=== PATIENT | male | born 1955 | race Caucasian/White ===

== ENCOUNTER 2018-06-19 20:24 | Emergency (ER) | payer OTHER ==
[2018-06-19] MEDS ORDERED: LORazepam 2 MG/ML INJ IV STA (21:32)
--- NOTE | 2018-06-19 21:50 | XR ---
EXAMINATION TYPE: XR chest 1V portable DATE OF EXAM: 06/19/2018 COMPARISON: NONE HISTORY: Dyspnea TECHNIQUE: Single frontal view of the chest is obtained. FINDINGS: Heart and mediastinum are normal. Lungs are clear. Diaphragm is normal. Bony thorax appear s normal. There are chest leads. IMPRESSION: Normal chest
[2018-06-19] MEDS ORDERED: ONDANSETRON 4 MG/2 ML VIAL IVP STA (22:03)
--- NOTE | 2018-06-19 22:03 | ED ---
General Adult HPI - General Chief complaint: ENT Stated complaint: Food stuck in throat Time Seen by Provider: 06/19/18 21:14 Source: patient Mode of arrival: wheelchair Limitations: no limitations - History of Present Illness Initial comments: This patient is 62-year-old man presenting to be evaluated for difficulty with his breathing. The patient states that he had taken "a supplement", which she declined to discuss further with me about 3 hours ago, and then shortly after started feeling like his breathing was different. Patient denies any pain. He denies history of similar reactions. Onset/Timin -: hour(s) Consistency: constant Improves with: none Worsens with: none Associated Symptoms: shortness of breath Treatments Prior to Arrival: none - Related Data Home Medications Medication Instructions Recorded Confirmed No Known Home Medications 06/19/18 06/19/18 Allergies Allergy/AdvReac Type Severity Reaction Status Date / Time Penicillins Allergy Anaphylaxis Verified 06/19/18 20:48 Review of Systems ROS Statement: Those systems with pertinent positive or pertinent negative responses have been documented in the HPI. ROS Other: All systems not noted in ROS Statement are negative. Constitutional: Denies: fever, chills Respiratory: Reports: dyspnea. Denies: cough, wheezes, stridor Cardiovascular: Denies: chest pain, palpitations, dyspnea on exertion, orthopnea , edema, syncope Gastrointestinal: Denies: abdominal pain, vomiting, diarrhea Genitourinary: Denies: dysuria, hematuria Musculoskeletal: Denies: back pain Skin: Denies: rash Neurological: Denies: headache Past Medical History Past Medical History: No Reported History History of Any Multi-Drug Resistant Organisms: None Reported Past Surgical History: Hernia Repair Past Psychological History: No Psychological Hx Reported Smoking Status: Never smoker Past Alcohol Use History: None Reported Past Drug Use History: None Reported General Exam Limitations: no limitations General appearance: alert, in no apparent distress, anxious Head exam: Present: atraumatic, normocephalic Eye exam: Present: normal appearance. Absent: scleral icterus, conjunctival injection ENT exam: Present: normal oropharynx Neck exam: Present: normal inspection Respiratory exam: Present: normal lung sounds bilaterally. Absent: respiratory distress, wheezes, rales, rhonchi, stridor, accessory muscle use, decreased breath sounds, prolonged expiratory Cardiovascular Exam: Present: regular rate, normal rhythm, normal heart sounds. Absent: systolic murmur, diastolic murmur, rubs, gallop GI/Abdominal exam: Present: soft. Absent: distended, tenderness, guarding, rebound, mass Extremities exam: Present: normal inspection, normal capillary refill. Absent: pedal edema, calf tenderness Back exam: Present: normal inspection Neurological exam: Present: alert Psychiatric exam: Present: anxious Skin exam: Present: warm, dry, intact, normal color. Absent: rash Course Vital Signs 06/19/18 06/19/18 06/19/18 20:26 20:39 22:07 Temperature 98.1 F Pulse Rate 69 70 77 Respiratory 24 18 26 H Rate Blood Pressure 175/92 162/87 158/79 O2 Sat by Pulse 100 99 Oximetry EKG Findings - EKG Results: EKG: interpreted by BRANDON, sinus rhythm (Rate 68 bpm), normal axis, normal QRS - Blocks, [place], Hypertrophy, ST Abn: Repolarization changes or abnormalities: nonspecific abnormality, ST segment, and/or T wave, Q-T interval prolongation Medical Decision Making - Medical Decision Making Patient's 62-year-old man presenting with sensation of dyspnea and that possibly he had a capsule stuck in his throat. The patient did have an episode of vomiting, however no capsule was found. The patient does feel better in the emergency department and requests to go home. His studies are unremarkable area we discussed appropriate further care and follow-up as well as return parameters. - Lab Data Result diagrams: 06/19/18 20:44 06/19/18 20:44 Lab Results 06/19/18 06/19/18 06/19/18 Range/Units 20:44 20:44 20:44 WBC 7.5 (3.8-10.6) k/uL RBC 5.05 (4.30-5.90) m/uL Hgb 14.9 (13.0-17.5) gm/dL Hct 44.4 (39.0-53.0) % MCV 87.9 (80.0-100.0) fL MCH 29.4 (25.0-35.0) pg MCHC 33.5 (31.0-37.0) g/dL RDW 13.9 (11.5-15.5) % Plt Count 201 (150-450) k/uL Neutrophils % 74 % Lymphocytes % 15 % Monocytes % 5 % Eosinophils % 4 % Basophils % 1 % Neutrophils # 5.5 (1.3-7.7) k/uL Lymphocytes # 1.1 (1.0-4.8) k/uL Monocytes # 0.4 (0-1.0) k/uL Eosinophils # 0.3 (0-0.7) k/uL Basophils # 0.1 (0-0.2) k/uL PT (9.0-12.0) sec INR (<1.2) APTT (22.0-30.0) sec D-Dimer (<0.60) mg/L FEU Sodium 139 (137-145) mmol/L Potassium 4.6 (3.5-5.1) mmol/L Chloride 103 (98-107) mmol/L Carbon Dioxide 24 (22-30) mmol/L Anion Gap 12 mmol/L BUN 22 H (9-20) mg/dL Creatinine 1.34 H (0.66-1.25) mg/dL Est GFR (CKD-EPI)AfAm 65 (>60 ml/min/1.73 sqM) Est GFR (CKD-EPI)NonAf 56 (>60 ml/min/1.73 sqM) Glucose 115 H (74-99) mg/dL Calcium 9.9 (8.4-10.2) mg/dL Total Bilirubin 0.7 (0.2-1.3) mg/dL AST 28 (17-59) U/L ALT 41 (21-72) U/L Alkaline Phosphatase 64 (38-126) U/L Total Creatine Kinase 251 H (55-170) U/L CK-MB (CK-2) 4.4 H (0.0-2.4) ng/mL CK-MB (CK-2) Rel Index 1.8 Troponin I <0.012 (0.000-0.034) ng/mL NT-Pro-B Natriuret Pep pg/mL Total Protein 7.5 (6.3-8.2) g/dL Albumin 4.6 (3.5-5.0) g/dL 06/19/18 06/19/18 Range/Units 20:44 20:44 WBC (3.8-10.6) k/uL RBC (4.30-5.90) m/uL Hgb (13.0-17.5) gm/dL Hct (39.0-53.0) % MCV (80.0-100.0) fL MCH (25.0-35.0) pg MCHC (31.0-37.0) g/dL RDW (11.5-15.5) % Plt Count (150-450) k/uL Neutrophils % % Lymphocytes % % Monocytes % % Eosinophils % % Basophils % % Neutrophils # (1.3-7.7) k/uL Lymphocytes # (1.0-4.8) k/uL Monocytes # (0-1.0) k/uL Eosinophils # (0-0.7) k/uL Basophils # (0-0.2) k/uL PT 10.2 (9.0-12.0) sec INR 0.9 (<1.2) APTT 24.3 (22.0-30.0) sec D-Dimer 0.50 (<0.60) mg/L FEU Sodium (137-145) mmol/L Potassium (3.5-5.1) mmol/L Chloride (98-107) mmol/L Carbon Dioxide (22-30) mmol/L Anion Gap mmol/L BUN (9-20) mg/dL Creatinine (0.66-1.25) mg/dL Est GFR (CKD-EPI)AfAm (>60 ml/min/1.73 sqM) Est GFR (CKD-EPI)NonAf (>60 ml/min/1.73 sqM) Glucose (74-99) mg/dL Calcium (8.4-10.2) mg/dL Total Bilirubin (0.2-1.3) mg/dL AST (17-59) U/L ALT (21-72) U/L Alkaline Phosphatase (38-126) U/L Total Creatine Kinase (55-170) U/L CK-MB (CK-2) (0.0-2.4) ng/mL CK-MB (CK-2) Rel Index Troponin I (0.000-0.034) ng/mL NT-Pro-B Natriuret Pep 61 pg/mL Total Protein (6.3-8.2) g/dL Albumin (3.5-5.0) g/dL Disposition Clinical Impression: Dyspnea Disposition: HOME SELF-CARE Condition: Good Instructions (If sedation given, give patient instructions): Dyspnea (ED) Is patient prescribed a controlled substance at d/c from ED?: No Referrals: None,Stated [Primary Care Provider] - 1-2 days
[2018-06-19 22:08] LABS: Basophils # (A) 0.1 k/uL (0-0.2); Basophils % (A) 1 %; Eosinophils # (A) 0.3 k/uL (0-0.7); Eosinophils % (A) 4 %; HCT 44.4 % (39.0-53.0); HGB 14.9 gm/dL (13.0-17.5); Lymphocytes # (A) 1.1 k/uL (1.0-4.8); Lymphocytes % (A) 15 %; MCH 29.4 pg (25.0-35.0); MCHC 33.5 g/dL (31.0-37.0); MCV 87.9 fL (80.0-100.0); Mean Platelet Volume 9.1; Monocytes # (A) 0.4 k/uL (0-1.0); Monocytes % (A) 5 %; Neutrophils # (A) 5.5 k/uL (1.3-7.7); Neutrophils % (A) 74 %; Platelet Count 201 k/uL (150-450); RBC 5.05 m/uL (4.30-5.90); RDW 13.9 % (11.5-15.5); WBC 7.5 k/uL (3.8-10.6)
[2018-06-19 22:19] LABS: D-Dimer 0.5 mg/L FEU (<0.60); INR 0.9 (<1.2); Prothrombin Time 10.2 sec (9.0-12.0)
[2018-06-19 22:20] LABS: Partial Thromboplastin Time 24.3 sec (22.0-30.0)
[2018-06-19 22:25] LABS: Albumin 4.6 g/dL (3.5-5.0); Calcium 9.9 mg/dL (8.4-10.2); Potassium 4.6 mmol/L (3.5-5.1); Total Bilirubin 0.7 mg/dL (0.2-1.3); Total Protein 7.5 g/dL (6.3-8.2)
[2018-06-19 22:30] LABS: Creatine Kinase 251 U/L (55-170)
[2018-06-19 22:43] LABS: Creatine Kinase MB 4.4 ng/mL (0.0-2.4); Troponin I <0.012 ng/mL (0.000-0.034)
[2018-06-19 23:37] VITALS: BP 147/80; PULSE 78; RESP 16; TEMP 99
== END 2018-06-19 23:41 | disposition home or self-care (01) ==
LOC: EC 20:24
DX: R06.02 Shortness of breath (principal); R11.10 Vomiting, unspecified; Z88.0 Allergy status to penicillin
CPT/HCPCS: 36415; 93005; 85379; 83880; 80053; 82550; 82553; 84484; 85025; 85610; 85730; 71045; 99284; 96374; 96375; J2060; J2405

== ENCOUNTER → 2018-09-15 | Outpatient (CLI) | payer MEDICARE ==
--- NOTE | 2018-09-16 18:33 | CT ---
EXAMINATION TYPE: CT brain wo/w con DATE OF EXAM: 09/15/2018 COMPARISON: None HISTORY: 63-year-old male ataxia, amnesia, memory loss, confusion. No injury or known conditions per pt. TECHNIQUE: Examination was done in axial plane without and with intravenous contrast. 100 mL Isovue- 300 IV contrast is utilized. Coronal and sagittal reconstructions performed. CT DLP: 2163.2 mGycm Automated exposure control for dose reduction was used. FINDINGS: There is an irregular rim-enhancing mass lesion measuring 4.6 cm craniocaudal by 4.2 cm wide by 4.8 c m AP. This is centered within the left temporal lobe extending up into the posterior aspect of the le ft subinsular region. Surrounding vasogenic edema and resulting 5 mm of rightward midline shift. There is suggestion of min imal left-sided uncal herniation Slight asymmetric mass effect onto the left lateral ventricle and gyral crowding on this side. No evidence for acute intracranial hemorrhage or hydrocephalus or extra-axial fluid collection. 2.6 cm mucosal retention cyst left maxillary sinus and smaller measuring 1.0 cm in the right maxillar y sinus. Slight undulating nasal septum. Orbits and globes appear intact. Mastoid air cells well pneu matized. IMPRESSION: Irregular rim-enhancing, likely centrally necrotic mass measuring up to 4.8 cm centered in the left t emporal lobe extending up into the posterior aspect of the left subinsular region. Surrounding vasoge bhumi edema with resultant 5 mm of rightward midline shift and minimal left-sided uncal herniation. Talib plasm is suggested. A [place] level critical message alert has been initiated for Cayden Yarbrough MD via the [employer] Critical Results System on 09/16/2018 6:30 PM. This message alert has been sent to Cayden Yarbrough MD via the preferences provided by the clinician for the receipt of Radiology Critical Findings. Mess age ID [id number].
== END | disposition home or self-care (01) ==
LOC: RADCTMAIN 15:13
PROVIDERS: ATTEND Internal Medicine
DX: G93.5 Compression of brain (principal); R27.0 Ataxia, unspecified; R22.2 Localized swelling, mass and lump, trunk; R41.3 Other amnesia; R47.01 Aphasia
CPT/HCPCS: 82565; 84520; 70470; 36415; Q9967

== ENCOUNTER 2018-09-17 08:02 | Emergency (ER) | payer MEDICARE ==
--- NOTE | 2018-09-17 08:26 | ED ---
General Adult HPI - General Chief complaint: Neuro Symptoms/Deficit Stated complaint: Confusion Time Seen by Provider: 09/17/18 08:10 Source: patient, RN notes reviewed Mode of arrival: ambulatory Limitations: no limitations - History of Present Illness Initial comments: Patient is a pleasant 63-year-old male presenting to the emergency Department with complaints of confusion. Symptoms have progressed with the past several months. Patient has having problems remembering things. Patient has also been more emotional than normal. Patient did see his primary care physician and had computed tomography scan ordered. Computed tomography scan showed abnormal mass and patient was advised come the emergency Department. No headaches. No weakness. No difficulty with walking. - Related Data Home Medications Medication Instructions Recorded Confirmed No Known Home Medications 06/19/18 06/19/18 Allergies Allergy/AdvReac Type Severity Reaction Status Date / Time Penicillins Allergy Anaphylaxis Verified 09/17/18 08:07 Review of Systems ROS Statement: Those systems with pertinent positive or pertinent negative responses have been documented in the HPI. ROS Other: All systems not noted in ROS Statement are negative. Constitutional: Denies: fever Eyes: Denies: eye pain ENT: Denies: ear pain Respiratory: Denies: cough Cardiovascular: Denies: chest pain Endocrine: Denies: fatigue Gastrointestinal: Denies: abdominal pain Genitourinary: Denies: dysuria Musculoskeletal: Denies: back pain Skin: Denies: rash Neurological: Reports: confusion. Denies: headache, weakness, numbness, paresthesias, abnormal gait, vertigo Past Medical History Past Medical History: No Reported History History of Any Multi-Drug Resistant Organisms: None Reported Past Surgical History: Hernia Repair Past Psychological History: No Psychological Hx Reported Smoking Status: Never smoker Past Alcohol Use History: None Reported Past Drug Use History: None Reported General Exam Limitations: no limitations General appearance: alert, in no apparent distress Head exam: Present: atraumatic, normocephalic Eye exam: Present: normal appearance, PERRL, EOMI. Absent: nystagmus ENT exam: Present: normal oropharynx Neck exam: Present: normal inspection Respiratory exam: Present: normal lung sounds bilaterally Cardiovascular Exam: Present: regular rate, normal rhythm GI/Abdominal exam: Present: soft. Absent: tenderness Extremities exam: Present: normal inspection. Absent: pedal edema, calf tenderness Neurological exam: Present: alert, oriented X3, CN II-XII intact. Absent: motor sensory deficit Expanded Neurological exam: Present: protecting the airway Patient oriented to: Present: person, place, time Speech: Present: fluid speech Cranial nerves: EOM's Intact: Normal, Facial Sensation: Normal Cerebellar function: Finger to Nose: Normal Sensory exam: Upper Extremity Light Touch: Normal, Lower Extremity Light Touch: Normal Motor strength exam: RUE: 5, LUE: 5, RLE: 5, LLE: 5 Eye Response: (4) open spontaneously Motor Response: (6) obeys commands Verbal Response: (5) oriented Psychiatric exam: Present: normal affect, normal mood Skin exam: Present: normal color Course Vital Signs 09/17/18 08:04 Temperature 97.6 F Pulse Rate 72 Respiratory 18 Rate Blood Pressure 152/89 O2 Sat by Pulse 100 Oximetry Medical Decision Making - Medical Decision Making Patient was notified of results and need for further evaluation and transfer. Case was discussed with Dr. Smart at [facility] who will accept transfer. - Radiology Data Radiology results: report reviewed (Reviewed CT report from 09/15 showing left- sided temporal mass 4.8 cm with some edema and shift.) Disposition Clinical Impression: Brain mass Disposition: OTHER INSTITUTION NOT DEFINED Is patient prescribed a controlled substance at d/c from ED?: No Referrals: Cayden Yarbrough MD [Primary Care Provider] - 1-2 days Time of Disposition: 08:32 - Out of Hospital Transfer - Req. Specs Out of Hospital Transfer - Requested Specifics: Other Emergency Center
[2018-09-17 08:36] VITALS: RESP 16
[2018-09-17 08:48] LABS: Basophils # (A) 0.1 k/uL (0-0.2); Basophils % (A) 1 %; Eosinophils # (A) 0.3 k/uL (0-0.7); Eosinophils % (A) 3 %; HCT 46.7 % (39.0-53.0); HGB 15.7 gm/dL (13.0-17.5); Lymphocytes # (A) 1.5 k/uL (1.0-4.8); Lymphocytes % (A) 14 %; MCH 29.6 pg (25.0-35.0); MCHC 33.6 g/dL (31.0-37.0); Mean Platelet Volume 7.7; Monocytes # (A) 0.4 k/uL (0-1.0); Monocytes % (A) 4 %; Neutrophils # (A) 8.3 k/uL (1.3-7.7); Neutrophils % (A) 77 %; Platelet Count 238 k/uL (150-450); RBC 5.31 m/uL (4.30-5.90); RDW 13.8 % (11.5-15.5); WBC 10.7 k/uL (3.8-10.6)
[2018-09-17 08:51] LABS: INR 0.9 (<1.2); Partial Thromboplastin Time 23.3 sec (22.0-30.0); Prothrombin Time 10.1 sec (9.0-12.0)
[2018-09-17] MEDS ORDERED: DEXAMETHASONE SOD PHOSPHATE 10 MG/ML 1 ML VIAL IV STA (08:56)
--- NOTE | 2018-09-17 09:00 | XR ---
EXAMINATION TYPE: XR chest 2V DATE OF EXAM: 09/17/2018 COMPARISON: 06/19/2018 HISTORY: 63-year-old male confusion, altered mental status TECHNIQUE: PA and lateral views FINDINGS: The cardiomediastinal silhouette, aorta, and pulmonary vasculature are within normal limits. Lungs an d pleural spaces are clear. IMPRESSION: No acute cardiopulmonary process.
[2018-09-17 09:14] LABS: Albumin 4.9 g/dL (3.5-5.0); Calcium 9.9 mg/dL (8.4-10.2); Potassium 4.6 mmol/L (3.5-5.1); Total Bilirubin 0.8 mg/dL (0.2-1.3); Total Protein 7.9 g/dL (6.3-8.2)
[2018-09-17 10:06] VITALS: BP 168/88; PULSE 67; TEMP 98.1
== END 2018-09-17 10:10 | disposition other institution (70) ==
LOC: EC 08:02
DX: G93.9 Disorder of brain, unspecified (principal); Z88.0 Allergy status to penicillin
CPT/HCPCS: 36415; 71046; 80053; 85025; 85610; 85730; 93005; 96374; 99285

== ENCOUNTER → 2019-01-14 | Outpatient (CLI) | payer MEDICARE ==
--- NOTE | 2019-01-14 14:42 | MR ---
EXAMINATION TYPE: MR brain wo/w con DATE OF EXAM: 01/14/2019 COMPARISON: CT brain September 15, 2018. 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 TECHNIQUE: Multiplanar, multisequence images of the brain and brainstem is performed without and with IV contras t, utilizing 10 mL intravenous Gadavist . FINDINGS: Diffusion weighted images demonstrate no evidence of a recent infarct or other diffusion ab normality. There is background mild ventricular and sulcal prominence redemonstrated. There is marke d improvement in size in local mass effect of left temporal lesion with oval 2.1 x 2.0 cm rim-enhanci ng focus posterior left temporal lobe series 6 on image 26 remaining present that shows some surround ing vasogenic edema most prominent involving inferior aspect left temporal lobe. This lesion measured 4.8 cm long axis prior study axial image 19. Significant improvement is identified from prior CT in the lesion size and surrounding edema. Midline structures demonstrate normal morphology. The craniocervical junction appears within normal limits. Post contrast images demonstrate no new areas of abnormal enhancement. The dural venous sinu ses appear patent. Dominant left vertebral artery incidentally noted. There is mucous retention cyst or polyps redemonstrated in the left maxillary sinus largest posterior aspect axial image 3. Some pat david fluid signal left mastoid air cells is now present presumed retained secretions, correlate clinic ally. IMPRESSION: Positive treatment response through the left temporal mass or neoplasm
== END | disposition home or self-care (01) ==
LOC: RADMRIMAIN 13:10
PROVIDERS: ATTEND Radiology Radiation Oncology
DX: C71.2 Malignant neoplasm of temporal lobe (principal); Z98.890 Other specified postprocedural states
CPT/HCPCS: 70553; A9585

== ENCOUNTER → 2019-04-12 | Outpatient (CLI) | payer MEDICARE | LOC: RADMRIMAIN 16:44 | PROVIDERS: ATTEND Radiology Radiation Oncology | DX: Z53.9 Procedure and treatment not carried out, unspecified reason (principal) ==

== ENCOUNTER → 2019-04-28 | Outpatient (CLI) | payer MEDICARE ==
--- NOTE | 2019-04-28 13:20 | MR ---
EXAMINATION TYPE: MR brain wo/w con DATE OF EXAM: 04/28/2019 COMPARISON: 01/14/2019 HISTORY: Mets, lung CA treated with post surgical excision and radiation. TECHNIQUE: Multiplanar, multisequence images of the brain and brainstem is performed without and with IV contras t, utilizing 11 mL intravenous Gadavist . FINDINGS: Diffusion weighted images demonstrate no evidence of a recent infarct or other diffusion ab normality. There is no extra-axial fluid collection. The ventricular system and cisternal spaces ar e again diffusely prominent with more volume loss on the left and right. The left temporal lesion measures slightly smaller in comparison to the prior of 01/14/2019 now measur ing 1.8 x 2.1 cm and previously measuring 2.0 x 2.1 cm when measured in a similar location. There is a similar degree of vasogenic edema. The mass is centrally cystic with only peripheral enhancement. A second cystic component is now more readily visualized than on the prior seen anterior and medial to the lesion. This measures 1.0 x 0.6 cm. Some linear enhancement seen at the posterior and cranial as pect of the index primary lesion such as on postcontrast series 601 image 28. There is slight asymmet jana dural enhancement surrounding the left temporal lobe, likely posttreatment change. No additional areas of abnormal enhancement are seen. Craniotomy changes seen of the left parietal and temporal regions with dural flap demonstrating thin peripheral enhancement. There are a few scattered foci of T2/FLAIR hyperintensity in the subcortical and periventricular whit e matter likely on the basis of chronic microangiopathy. Midline structures demonstrate normal morpho logy. The craniocervical junction appears within normal limits. Post contrast images demonstrate no abnormal enhancement. The dural venous sinuses appear patent. Are extensive polypoid mucosal thicken ing of the left maxillary sinus that is complex and mild polypoid mucosal thickening in the right max illary sinus with mild mucosal thickening of the ethmoid sinuses and scant mucosal thickening of the frontal sinuses. Sphenoid sinuses and mastoid air cells are well aerated. IMPRESSION: 1. Similar size of the postsurgical cavitary lesion of the left temporal lobe in comparison to the pr ior of 01/14/2019. A second adjacent smaller cavitary area is slightly more conspicuous than the prior . No new nodularity of the peripheral thin rim enhancement and dural enhancement. Findings are all li caity represent posttreatment change. 2. No new abnormal enhancement to suggest additional intracranial metastasis. 3. Complex polypoid paranasal sinus disease.
== END | disposition home or self-care (01) ==
LOC: RADMRIMAIN 11:30
PROVIDERS: ATTEND Radiology Radiation Oncology
DX: C71.2 Malignant neoplasm of temporal lobe (principal); J32.9 Chronic sinusitis, unspecified; Z98.890 Other specified postprocedural states
CPT/HCPCS: 70553; A9585

== ENCOUNTER → 2019-07-06 | Outpatient (CLI) | payer MEDICARE | END | disposition home or self-care (01) | LOC: RADMRIMAIN 10:52 | PROVIDERS: ATTEND Radiology Radiation Oncology | DX: Z53.9 Procedure and treatment not carried out, unspecified reason (principal) ==

== ENCOUNTER → 2019-07-30 | Outpatient (CLI) | payer MEDICARE ==
--- NOTE | 2019-07-30 20:53 | MR ---
EXAMINATION TYPE: MR brain wo/w con DATE OF EXAM: 07/30/2019 COMPARISON: 04/28/2019 HISTORY: Malignant neoplasm of temporal lobe, metastatic lung ca. Brain surgery 2019 CONTRAST: Performed utilizing 10 mL intravenous Gadavist gadolinium contrast. TECHNIQUE: Multiplanar, multiecho imaging on a 3.0 Magalie magnet is performed through the brain. Stud y is performed within 24 hours of arrival to the hospital. The craniovertebral junction is normal. The pituitary is normal. Diffusion-weighted imaging is performed. No abnormal hyperintensity is present to suggest an acute i ntracranial infarct or acute ischemic change. There is periventricular mild white matter change, likely chronic white matter ischemic change. Left temporal post surgical changes are present. White matter changes adjacent to the surgery site ar e evident. Additionally, better visualized on postcontrast imaging there is an area of increased enhancement in the anterior left temporal lobe measuring 1.8 x 1.0r by 1.0 cm. Residual tumor is suspected this has increased in size from the comparison of 04/28/2019. The fluid cavity in the middle cranial fossa left temporal lobe region currently measures 1.1 x 1.8 c m which is diminished from the 2.1 x 1.8 cm. Ventricles and sulci are prominent for the patient age. Mucosal thickening is present within several paranasal sinuses including bilateral maxillary left et hmoid air cell and bilateral frontal sinuses.. IMPRESSIONS: 1. Increasing area and volume of enhancement along the inferior anterior postsurgical site of the lef t temporal lobe suspicious for recurrence. 2. The cavitary portion of the lesion in the anterior left temporal lobe is diminished in size over t he interval.
== END | disposition home or self-care (01) ==
LOC: RADMRIMAIN 14:43
PROVIDERS: ATTEND Radiology Radiation Oncology
DX: C71.2 Malignant neoplasm of temporal lobe (principal); Z92.3 Personal history of irradiation; Z98.890 Other specified postprocedural states
CPT/HCPCS: 70553; A9585

== ENCOUNTER → 2019-09-22 | Outpatient (CLI) | payer MEDICARE ==
--- NOTE | 2019-09-22 15:08 | MR ---
EXAMINATION TYPE: MR brain wo/w con DATE OF EXAM: 09/22/2019 COMPARISON: EXAMINATION TYPE: MR brain wo/w con DATE OF EXAM: 09/22/2019 COMPARISON: 07/30/2019 HISTORY: 64-year-old male F/U tumor resection temporal lobe TECHNIQUE: Multiplanar, multisequence images of the brain and brainstem were acquired before and aft er administration of 10 mL IV Gadavist. Diffusion weighted imaging is performed. FINDINGS: No suspicious restricted diffusion. Left temporal craniotomy flap with underlying resection cavity in the middle cranial fossa. Resection cavity is filled with CSF attenuation measuring 1.7 x 1.1 cm, unchanged from 07/30/2019. Enhancement along the anterior-inferior margin measures up to 2.7 cm wide and 1.2 cm AP and 9 mm cran iocaudal (versus 2.5 cm wide by 1.0 x 0.7 cm, previously). (Axial image 31 and sagittal image 24). Heterogeneous enhancement extending from the posterior resection margin measures 2.3 cm AP by 1.2 cm craniocaudal by 1.3 cm wide. This is in comparison to 2.3 x 0.9 x 1.0 cm. (Axial image 33 and sagitta l image 26). The overall surrounding bright white matter change throughout the left temporal lobe extending up and posterior to the atrium of the left lateral ventricle and to the posterior left subinsular region ar e unchanged. No new enhancing lesions are seen. Mild to moderate ventriculomegaly is unchanged, likely secondary to central cerebral atrophy. Few scattered bright white matter foci in the subcortical and deep white matter regions of both cereb ral hemispheres likely related to changes of chronic small vessel ischemic disease with minimal burni ng. Midline structures demonstrate normal morphology. The craniocervical junction is normal. Large mucosal retention cysts in the left maxillary sinus measuring up to 3.4 cm and the right maxill haley sinus measuring up to 1.2 cm. Scattered moderate mucosal thickening ethmoid air cells. IMPRESSION: 1. Left temporal craniotomy flap with underlying resection cavity.. 2. Overall stable size of the 1.7 x 1.1 cm resection cavity. Lobulated heterogeneous enhancement jc g the anterior and posterior margins show minimal increase by a few millimeters. Post radiation thera py change remains a possibility rather than recurrence along the resection margin. Continued follow-u p recommended. 3. Stable bright white matter change throughout the left temporal lobe extending posteriorly and supe riorly along the atrium of the left lateral ventricle. 4. No new enhancing lesions.
== END | disposition home or self-care (01) ==
LOC: RADMRIMAIN 13:01
PROVIDERS: ATTEND Neurological Surgery
DX: C71.1 Malignant neoplasm of frontal lobe (principal); Z98.890 Other specified postprocedural states; Z48.811 Encounter for surgical aftercare following surgery on the nervous system; R90.82 White matter disease, unspecified
CPT/HCPCS: 70553; A9585

== ENCOUNTER 2019-11-12 13:48 | Inpatient (IN) | payer MEDICARE ==
[2019-11-12] MEDS ORDERED: SODIUM CHLORIDE 0.9% 500 ML 500 ML IV STA (14:23)
--- NOTE | 2019-11-12 14:28 | ED ---
General Adult HPI - General Chief complaint: Neuro Symptoms/Deficit Stated complaint: Poss stroke Time Seen by Provider: 11/12/19 13:50 Source: patient, RN notes reviewed, old records reviewed Mode of arrival: ambulatory Limitations: language barrier, altered mental status - History of Present Illness Initial comments: This is a 64-year-old male who presents emergency Department and is difficult to understand he's having some expressive aphasia. Patient has no one with him and he states there is no family members area. Extensive conversation it was determined that the patient at some sort of facial surgery just anterior to his left ear and he said that was done at [facility] I believe. But it wasn't 100% clear what surgery or what for. Patient also states he had symptoms of droopy face and expressive aphasia for a week and he was at [facility] a week ago and they sent him home but he is back today because he just wants it fixed. Very difficu lt to get any details and 2 get accurate details from the patient. - Related Data Home Medications Medication Instructions Recorded Confirmed No Known Home Medications 06/19/18 09/17/18 Allergies Allergy/AdvReac Type Severity Reaction Status Date / Time Penicillins Allergy Anaphylaxis Verified 11/12/19 13:55 Review of Systems ROS Statement: Those systems with pertinent positive or pertinent negative responses have been documented in the HPI. ROS Other: All systems not noted in ROS Statement are negative. Past Medical History Past Medical History: Hypertension History of Any Multi-Drug Resistant Organisms: None Reported Past Surgical History: Hernia Repair Past Psychological History: No Psychological Hx Reported Smoking Status: Never smoker Past Alcohol Use History: None Reported Past Drug Use History: None Reported General Exam - General Exam Comments Initial Comments: GENERAL: Patient is well-developed and well-nourished. Patient is nontoxic and well- hydrated and is in mild distress. ENT: Neck is soft and supple. No significant lymphadenopathy is noted. Oropharynx is clear. Moist mucous membranes. EYES: The sclera were anicteric and conjunctiva were pink and moist. Extraocular movements were intact and pupils were equal round and reactive to light. Eyelids were unremarkable. PULMONARY: Unlabored respirations. Good breath sounds bilaterally. No audible rales rhonchi or wheezing was noted. CARDIOVASCULAR: There is a regular rate and rhythm without any murmurs gallops or rubs. ABDOMEN: Soft and nontender with normal bowel sounds. SKIN: Skin is clear with no lesions or rashes and otherwise unremarkable. NEUROLOGIC: Patient is alert and oriented difficult to assess orientation because he has such bad expressive aphasia. Patient has complete left-sided facial paralysis including forehead. Patient has expressive aphasia and it is difficult for him to explain what is going on today and why he is here. MUSCULOSKELETAL: Normal extremities with adequate strength and full range of motion. LYMPHATICS: No significant lymphadenopathy is noted PSYCHIATRIC: Normal psychiatric evaluation. Limitations: altered mental status Course Vital Signs 11/12/19 11/12/19 11/12/19 13:50 15:18 17:05 Temperature 98.3 F Pulse Rate 50 L 48 L 46 L Respiratory 18 15 16 Rate Blood Pressure 144/87 159/88 159/89 O2 Sat by Pulse 97 96 96 Oximetry Medical Decision Making - Medical Decision Making EKG shows a sinus bradycardia 53 bpm [place] interval 148 QRS is 82 QT intervals 438 QTC is 410. Patient's EKG shows no ST segment elevation or depression. CT of the brain and CTA a showed no acute abnormality. Patient still is having difficult time expressing why he is here and giving details of his circumstances. I did review the paperwork from [facility] and it did indicate he has a history of glioblastoma and had recent surgery on September 24. We also received a phone call from Adult Protective Services stating that the patient was acting altered recently and on occasionally taking more medicine than was prescribed. I spoke with Dr. Goins he agreed to admit the patient admitted the patient wrote admitting orders. - Lab Data Result diagrams: 11/12/19 14:10 11/12/19 14:10 Lab Results 11/12/19 11/12/19 11/12/19 Range/Units 14:10 14:10 14:10 WBC 16.2 H (3.8-10.6) k/uL RBC 4.57 (4.30-5.90) m/uL Hgb 14.4 (13.0-17.5) gm/dL Hct 41.8 (39.0-53.0) % MCV 91.4 (80.0-100.0) fL MCH 31.5 (25.0-35.0) pg MCHC 34.4 (31.0-37.0) g/dL RDW 13.9 (11.5-15.5) % Plt Count 232 (150-450) k/uL Neutrophils % 90 % Lymphocytes % 5 % Monocytes % 4 % Eosinophils % 0 % Basophils % 0 % Neutrophils # 14.5 H (1.3-7.7) k/uL Lymphocytes # 0.8 L (1.0-4.8) k/uL Monocytes # 0.7 (0-1.0) k/uL Eosinophils # 0.1 (0-0.7) k/uL Basophils # 0.1 (0-0.2) k/uL PT 10.2 (9.0-12.0) sec INR 1.0 (<1.2) APTT 21.2 L (22.0-30.0) sec Sodium 136 L (137-145) mmol/L Potassium 4.6 (3.5-5.1) mmol/L Chloride 105 (98-107) mmol/L Carbon Dioxide 24 (22-30) mmol/L Anion Gap 7 mmol/L BUN 25 H (9-20) mg/dL Creatinine 0.95 (0.66-1.25) mg/dL Est GFR (CKD-EPI)AfAm >90 (>60 ml/min/1.73 sqM) Est GFR (CKD-EPI)NonAf 84 (>60 ml/min/1.73 sqM) Glucose 102 H (74-99) mg/dL Calcium 9.5 (8.4-10.2) mg/dL Total Bilirubin 0.5 (0.2-1.3) mg/dL AST 21 (17-59) U/L ALT 22 (4-49) U/L Alkaline Phosphatase 63 (38-126) U/L Troponin I (0.000-0.034) ng/mL Total Protein 6.6 (6.3-8.2) g/dL Albumin 4.0 (3.5-5.0) g/dL 11/12/19 Range/Units 14:10 WBC (3.8-10.6) k/uL RBC (4.30-5.90) m/uL Hgb (13.0-17.5) gm/dL Hct (39.0-53.0) % MCV (80.0-100.0) fL MCH (25.0-35.0) pg MCHC (31.0-37.0) g/dL RDW (11.5-15.5) % Plt Count (150-450) k/uL Neutrophils % % Lymphocytes % % Monocytes % % Eosinophils % % Basophils % % Neutrophils # (1.3-7.7) k/uL Lymphocytes # (1.0-4.8) k/uL Monocytes # (0-1.0) k/uL Eosinophils # (0-0.7) k/uL Basophils # (0-0.2) k/uL PT (9.0-12.0) sec INR (<1.2) APTT (22.0-30.0) sec Sodium (137-145) mmol/L Potassium (3.5-5.1) mmol/L Chloride (98-107) mmol/L Carbon Dioxide (22-30) mmol/L Anion Gap mmol/L BUN (9-20) mg/dL Creatinine (0.66-1.25) mg/dL Est GFR (CKD-EPI)AfAm (>60 ml/min/1.73 sqM) Est GFR (CKD-EPI)NonAf (>60 ml/min/1.73 sqM) Glucose (74-99) mg/dL Calcium (8.4-10.2) mg/dL Total Bilirubin (0.2-1.3) mg/dL AST (17-59) U/L ALT (4-49) U/L Alkaline Phosphatase (38-126) U/L Troponin I <0.012 (0.000-0.034) ng/mL Total Protein (6.3-8.2) g/dL Albumin (3.5-5.0) g/dL Disposition Clinical Impression: Altered mental status, Family history of glioblastoma Disposition: ADMITTED IP TO THIS [facility] Referrals: Nonstaff,Physician [Primary Care Provider] - 1-2 days Time of Disposition: 17:11
[2019-11-12 14:51] LABS: ALT 22 U/L (4-49); AST 21 U/L (17-59); African American GFR (CKD) >90 (>60 ml/min/1.73 sqM); Alkaline Phosphatase 63 U/L (38-126); Anion Gap 7 mmol/L; Blood Urea Nitrogen 25 mg/dL (9-20); Calcium 9.5 mg/dL (8.4-10.2); Carbon Dioxide 24 mmol/L (22-30); Chloride 105 mmol/L (98-107); Glucose 102 mg/dL (74-99); Non-African American GFR(CKD) 84 (>60 ml/min/1.73 sqM); Potassium 4.6 mmol/L (3.5-5.1); Sodium 136 mmol/L (137-145); Total Bilirubin 0.5 mg/dL (0.2-1.3); Total Protein 6.6 g/dL (6.3-8.2)
[2019-11-12 14:54] LABS: Prothrombin Time 10.2 sec (9.0-12.0)
--- NOTE | 2019-11-12 14:54 | CT ---
EXAMINATION TYPE: CT brain wo con for TPA DATE OF EXAM: 11/12/2019 COMPARISON: 09/15/2018 HISTORY: Confusion, left sided facial droop. CT DLP: 1238.[address] of the brain was performed. The ventricles, basal cisterns and sulci overlying the cerebral convexities demonstrate mild enlargem ent. There is no evidence for intracranial hemorrhage or sulcal effacement. There is decreased attenuation about the periventricular white matter and deep white matter of both c erebral hemispheres, compatible with chronic small vessel ischemia. Differential diagnosis does inclu de demyelination. No mass effects are seen.No midline shift. Left temporal craniotomy changes noted. If symptoms persist consider MRI. IMPRESSION: 1. Age related atrophic and chronic small vessel ischemic change without acute intracranial process s een at this time.
[2019-11-12 14:55] LABS: Basophils # (A) 0.1 k/uL (0-0.2); Basophils % (A) 0 %; Eosinophils # (A) 0.1 k/uL (0-0.7); Eosinophils % (A) 0 %; HCT 41.8 % (39.0-53.0); HGB 14.4 gm/dL (13.0-17.5); Lymphocytes # (A) 0.8 k/uL (1.0-4.8); Lymphocytes % (A) 5 %; MCH 31.5 pg (25.0-35.0); MCHC 34.4 g/dL (31.0-37.0); MCV 91.4 fL (80.0-100.0); Monocytes # (A) 0.7 k/uL (0-1.0); Monocytes % (A) 4 %; Neutrophils # (A) 14.5 k/uL (1.3-7.7); Neutrophils % (A) 90 %; Platelet Count 232 k/uL (150-450); RBC 4.57 m/uL (4.30-5.90); RDW 13.9 % (11.5-15.5); WBC 16.2 k/uL (3.8-10.6)
[2019-11-12 14:56] LABS: Partial Thromboplastin Time 21.2 sec (22.0-30.0)
--- NOTE | 2019-11-12 15:16 | CT ---
EXAMINATION TYPE: CT angio head neck DATE OF EXAM: 11/12/2019 COMPARISON: None HISTORY: Confusion, left sided facial droop. CT DLP: 587.1 mGycm CONTRAST: Performed with IV Contrast, patient injected with 65 mL of Isovue 370. Combination Contrast CTA cervical carotids and [place] of Max CTA cervical carotids with 3-D recons truction Contrast CTA of the cervical carotids was performed 3-D reconstruction imaging obtained at a separate workstation. Right carotid system: Mild plaque is seen of the right common carotid artery. There is mild plaque a lso noted at the carotid bulb and proximal ICA. No significant diameter reduction. ECA is patent. Right vertebral artery appears unremarkable. Left carotid system: Mild plaque is seen of the left common carotid artery. There is mild plaque als o noted at the carotid bulb and proximal ICA. No significant diameter reduction. ECA is patent. Lef t vertebral artery appears unremarkable. IMPRESSION: 1. No significant diameter reduction to account for the patient's symptoms. CTA [place] with 3-D reconstruction Contrast CTA of the [place] was performed 3-D reconstruction imaging obtained at a separate workstation. Vertebrobasilar system as well as intracranial portions of the internal carotid arteries and their ma robert tributaries are patent. I do not see evidence for sizable aneurysm or vascular malformation. Pl ease note MRI provides greater sensitivity and specificity. Visualized brain appears grossly unremar kable. IMPRESSION: 1. No significant abnormality.
--- NOTE | 2019-11-12 15:20 | XR ---
EXAMINATION TYPE: XR chest 2V DATE OF EXAM: 11/12/2019 COMPARISON: 09/17/2018 INDICATION: Altered mental status facial droop TECHNIQUE: Frontal and lateral views of the chest are obtained. FINDINGS: The heart size is normal. The pulmonary vasculature is normal. The lungs are clear. IMPRESSION: 1. No acute pulmonary process.
[2019-11-12] MEDS ORDERED: SODIUM CHLORIDE 0.9% 1,000 ML IV ONE (17:11)
[2019-11-12] MEDS ORDERED: LORazepam 2 MG/ML INJ IV STA (18:37)
[2019-11-12] MEDS ORDERED: ONDANSETRON 4 MG/2 ML VIAL IVP PRN (23:15)
--- NOTE | 2019-11-12 23:47 | P.HPIM ---
History of Present Illness H&P Date: 11/12/19 Chief Complaint: Facial asymmetry Patient is a 64-year-old male with a known history of hypertension, history of GBM and craniotomy 2 years ago and also recent laser resection at [facility] on September 25, 2019 given. With the complaints of expressive aphasia and facial asymmetry. Patient states that he is currently at home and was discharged from [facility] 10/21/2019 patient was given dexamethasone tapering course at that time. Patient states that he has been having patient is medically and also states that his left side of the face is more flattened than after surgery recently. Patient believes that his left side of the face is more improved it was couple weeks ago. Patient is also having expiratory phase over the past 1 week and was admitted 3-week ago and was sent home. Patient is back to the hospital and he wants it to be fixed. Patient is somewhat disoriented and unable to provide reliable history at this time.Patient denied any complaints of chest pain or shortness of breath. No cough or sputum production. No fever no chills. No nausea vomiting or abdominal pain or diarrhea We have received a phone call from Adult Protective Services stating that the patient was acting altered recently and on occasionally taking more medication than prescribed. Patient had EKG in the ER showed sinus bradycardia with QTC 410. No ST-T wave changes. CT head was done showed age-related atrophic and chronic small vessel ischemic changes without acute intracranial process. CT angiography head and neck showed no significant diameter reduction to account for the patient's symptoms. No significant abnormalities. Chest x-ray showed no acute process. UA is pending. Blood pressure was 159/88 and pulse is 48 on admission saturat ing well on room air. Laboratory data showed WBC 16.2, hemoglobin 14.4 Sodium 136, BUN 25 and creatinine 0.95 Past Medical History: Hypertension Additional Past Medical History / Comment(s): brain mass History of Any Multi-Drug Resistant Organisms: None Reported Past Surgical History: Hernia Repair Additional Past Surgical History / Comment(s): brain sugery x2-last one 2 weeks ago. Past Anesthesia/Blood Transfusion Reactions: No Reported Reaction Past Psychological History: No Psychological Hx Reported Smoking Status: Former smoker Past Alcohol Use History: None Reported Additional Past Alcohol Use History / Comment(s): social drinker. Past Drug Use History: None Reported This is a 64-year-old male who presents emergency Department and is difficult to understand he's having some expressive aphasia. Patient has no one with him and he states there is no family members area. Extensive conversation it was determined that the patient at some sort of facial surgery just anterior to his left ear and he said that was done at [facility] I believe. But it wasn't 100% clear what surgery or what for. Patient also states he had symptoms of droopy face and expressive aphasia for a week and he was at [facility] a week ago and they sent him home but he is back today because he just wants it fixed. Very difficult to get any details and 2 get accurate details from the patient. Review of Systems Complete review of systems could not be obtained at this time except as per HPI.. Past Medical History Past Medical History: Hypertension Additional Past Medical History / Comment(s): brain mass History of Any Multi-Drug Resistant Organisms: None Reported Past Surgical History: Hernia Repair Additional Past Surgical History / Comment(s): brain sugery x2-last one 2 weeks ago. Past Anesthesia/Blood Transfusion Reactions: No Reported Reaction Past Psychological History: No Psychological Hx Reported Smoking Status: Former smoker Past Alcohol Use History: None Reported Additional Past Alcohol Use History / Comment(s): social drinker. Past Drug Use History: None Reported - Past Family History Sister(s) Family Medical History: Myocardial Infarction (OR) Brother(s) Family Medical History: Myocardial Infarction (OR) Medications and Allergies Home Medications Medication Instructions Recorded Confirmed Type Dexamethasone See Taper PO DIRECTED 11/12/19 11/12/19 History Ondansetron HCl [Zofran] 8 mg PO Q8H PRN 11/12/19 11/12/19 History amLODIPine [Norvasc] 5 mg PO DAILY 11/12/19 11/12/19 History Allergies Allergy/AdvReac Type Severity Reaction Status Date / Time Penicillins Allergy Anaphylaxis Verified 11/12/19 20:31 Physical Exam Vitals: Vital Signs Temp Pulse Pulse Resp BP BP Pulse Ox 11/12/19 21:29 97.4 F L 60 16 129/69 98 11/12/19 19:06 57 L 18 144/88 96 11/12/19 18:39 48 L 16 144/89 96 11/12/19 17:05 46 L 16 159/89 96 11/12/19 15:18 48 L 15 159/88 96 11/12/19 13:50 98.3 F 50 L 18 144/87 97 Intake and Output 11/12/19 11/12/19 11/13/19 14:59 22:59 06:59 Other: Weight 99.79 kg 99.79 kg PHYSICAL EXAMINATION: Patient is lying in the bed comfortably, no acute distress, awake alert and oriented.. HEENT: Normocephalic. Neck is supple. Pupils reactive. Nostrils clear. Oral cavity is moist. Ears reveal no drainage. Neck reveals no JVD, carotid bruits, or thyromegaly. CHEST EXAMINATION: Trachea is central. Symmetrical expansion. Lung garcia clear to auscultation and percussion. CARDIAC: Normal S1, S2 with no gallops. No murmurs ABDOMEN: Soft. Bowel sounds normal. No organomegaly. No abdominal bruits. Extremities: reveal no edema. No clubbing or cyanosis Neurologically awake, alert, oriented x2-3 .Left-sided facial droop. Muscle strength 5 out of 5 on all 4 extremities. Skin: No rash or skin lesions. Psychiatric: Coperative. Nonsuicidal Musculoskeletal: No joint swelling or deformity. Normal range of motion. Results CBC & Chem 7: 11/12/19 14:10 11/12/19 14:10 Labs: Abnormal Lab Results - Last 24 Hours (Table) 11/12/19 11/12/19 11/12/19 Range/Units 14:10 14:10 14:10 WBC 16.2 H (3.8-10.6) k/uL Neutrophils # 14.5 H (1.3-7.7) k/uL Lymphocytes # 0.8 L (1.0-4.8) k/uL APTT 21.2 L (22.0-30.0) sec Sodium 136 L (137-145) mmol/L BUN 25 H (9-20) mg/dL Glucose 102 H (74-99) mg/dL Thrombosis Risk Factor Assmnt - DVT/VTE Prophylaxis DVT/VTE Prophylaxis: Pharmacologic Prophylaxis ordered - Choose All That Apply Any of the Below Risk Factors Present?: Yes Each Factor Represents 1 point: Obesity (BMI >25) Other Risk Factors: Yes Each Risk Factor Represents 2 Points: Age 61-74 years Thrombosis Risk Factor Assessment Total Risk Factor Score: 3 Thrombosis Risk Factor Assessment Level: Moderate Risk Assessment and Plan Assessment: Left-sided facial asymmetry and expressive was 2 weeks ago as per patient. Ruled out acute CVA. CT head and CTA negative. Possible acute delirium with recent steroid use Mild hypovolemic hyponatremia Leukocytosis. Rule out infection. Hypertension History of glioblastoma multiforme status post laser surgery at [facility] on September 25, 2019 Previous history of smoking DVT prophylaxis with heparin subcu Plan: Patient will be continued on gentle hydration and symptomatic management. CT head and CTA head and neck was done showed no significant changes. Chest x-ray is negative and UA was ordered. Monitor repeat labs tomorrow. Continue to follow closely and further recommendations based on clinical course. Time with Patient: Greater than 30
[2019-11-13 06:00] LABS: Appearance,Urine Clear (Clear); Bilirubin,Urine Negative (Negative); Blood,Urine Negative (Negative); Color,Urine Light Yellow; Glucose,Urine (UA) Negative (Negative); Ketones,Urine Negative (Negative); Leukocyte Esterase,Urine Negative (Negative); Nitrite,Urine Negative (Negative); Protein,Urine Negative (Negative); Specific Gravity,Urine 1.008 (1.001-1.035); Urobilinogen,Urine <2.0 mg/dL (<2.0)
[2019-11-13 07:42] LABS: Basophils # (A) 0.1 k/uL (0-0.2); Basophils % (A) 1 %; Eosinophils # (A) 0.2 k/uL (0-0.7); Eosinophils % (A) 2 %; HCT 42.6 % (39.0-53.0); HGB 14.2 gm/dL (13.0-17.5); Lymphocytes # (A) 1.9 k/uL (1.0-4.8); Lymphocytes % (A) 16 %; MCH 31.2 pg (25.0-35.0); MCHC 33.3 g/dL (31.0-37.0); MCV 93.8 fL (80.0-100.0); Mean Platelet Volume 7.9; Monocytes # (A) 0.6 k/uL (0-1.0); Monocytes % (A) 5 %; Neutrophils # (A) 8.8 k/uL (1.3-7.7); Neutrophils % (A) 75 %; Platelet Count 182 k/uL (150-450); RBC 4.55 m/uL (4.30-5.90); WBC 11.7 k/uL (3.8-10.6)
[2019-11-13 08:00] LABS: Calcium 8.7 mg/dL (8.4-10.2); Potassium 4.2 mmol/L (3.5-5.1)
[2019-11-13] MEDS: amLODIPine 5 MG TAB PO SCH (08:42)
[2019-11-13] MEDS ORDERED: DEXAMETHASONE 4 MG TAB PO SCH (09:00)
[2019-11-14] MEDS: amLODIPine 5 MG TAB PO SCH (14:31)
--- NOTE | 2019-11-14 15:35 | P.CN ---
Psychiatric Consult - . Consult date: 11/14/19 Consult:: 11/14/19 15:17 IDENTIFYING DATA: 64-year-old male patient HPI: Patient admitted to the medical floor [facility] Lencho Duran with complaints of facial asymmetry and concerns of expressive aphasia. Patient per chart history was admitted to rule out CVA and regarding possible acute delirium. Brain CT has shown age-related atrophic and chronic small vessel ischemic changes. Psychiatry was asked to see the patient regarding competency. When I asked the patient in terms of why I am there to evaluate him he states that he had his brain taken out. When I ask him why he states originally they were saying that his brain was falling apart. He states 2 weeks ago he was at [facility] he was able to walk away and do everything 100%. He then relates that there was changes in his face drooping and says he has got to go to [place] on . When asked him what the doctors are helping him with here he is not able to verbalize any significant specifics and relates that everything should be good. He makes reference to not being told anything. He relays that there are no negatives to leaving the hospital early. He is very focused on wanting to go home. Per chart history APS has recently been involved. PAST PSYCHIATRIC HISTORY: Denies, relays is never been in treatment with a psychiatrist. He's had no history of inpatient psychiatric admissions. He is never tried to hurt himself. PMH: Hypertension, GBM and craniotomy 2 years ago. Recent laser resection 09/25/2019. ALLERGIES: Penicillins MEDICATIONS: Norvasc, Zofran when necessary CHEMICAL DEPENDENCY HISTORY: Denies FAMILY PSYCHIATRIC HISTORY: None known at this time FAMILY CHEMICAL DEPENDENCY HISTORY: None known at this time SOCIAL HISTORY: Per chart history he does have a power of compliance attorney. Also per history part return he is going to court Friday for guardianship. Patient relates that he lives by himself in a mobile home. MENTAL STATUS EXAM: He is alert and overall cooperative with the interview process. He is very fixated and repetitive about wanting to go home. He describes his mood as "unhappy." He denies any thoughts of harm to self or others. He denies any auditory or visual hallucinations. Regarding date he says 08/14/2019. Regarding place initially he says [facility] but then he said [facility]. He does have difficulty describing medical issues. He relays that there are no negatives to leaving the hospital early, so does not seem to understand issues surrounding not receiving prescribed treatment. He does show evidence of disorientation as above. He does not show any significant degree of agitation but does perseverate about wanting to go home. At the end of the interview, later he did leave his room and security needed to be called and he did go back to his room with assistance with staff. IMPRESSIONS: Delirium likely, rule out major neurocognitive disorder PLAN: The patient does not appear to be old to make informed decisions. He currently does have power of compliance attorney, guardianship does seem appropriate. Consider supervised living situation for discharge placement. I do not see criteria for inpatient psychiatric hospitalization at this time. Continue to monitor for any agitation accompanying delirium or dementia. Psychiatry can follow up.
--- NOTE | 2019-11-14 23:26 | P.PN ---
Subjective Progress Note Date: 11/13/19 Patient is a 64-year-old male with a known history of hypertension, history of GBM and craniotomy 2 years ago and also recent laser resection at [facility] on September 25, 2019 given. With the complaints of expressive aphasia and facial asymmetry. Patient states that he is currently at home and was discharged from [facility] 10/21/2019 patient was given dexamethasone tapering course at that time. Patient states that he has been having patient is medically and also states that his left side of the face is more flattened than after surgery recently. Patient believes that his left side of the face is more improved it was couple weeks ago. Patient is also having expiratory phase over the past 1 week and was admitted 3-week ago and was sent home. Patient is back to the hospital and he wants it to be fixed. Patient is somewhat disoriented and unable to provide reliable history at this time.Patient denied any complaints of chest pain or shortness of breath. No cough or sputum production. No fever no chills. No nausea vomiting or abdominal pain or diarrhea We have received a phone call from Adult Protective Services stating that the patient was acting altered recently and on occasionally taking more medication than prescribed. Patient had EKG in the ER showed sinus bradycardia with QTC 410. No ST-T wave changes. CT head was done showed age-related atrophic and chronic small vessel ischemic changes without acute intracranial process. CT angiography head and neck showed no significant diameter reduction to account for the patient's symptoms. No significant abnormalities. Chest x-ray showed no acute process. UA is pending. Blood pressure was 159/88 and pulse is 48 on admission saturating well on room air. Laboratory data showed WBC 16.2, hemoglobin 14.4 Sodium 136, BUN 25 and creatinine 0.95 11/13/2019 Patient wants to be discharged home and says that his left sided facial droop is able to same. Patient is fixed at his left side of the face is more drooping than immediately after surgery. Patient says that he is supposed to follow with the surgeon on . Patient otherwise being followed by adult protective services. Contacted nephrology social worker and case management. Patient does have open file with the APS. A norwood does have a guardian who is applying for POA the next week. Patient wants to be discharged home. Otherwise no complaints of weakness. No complaints of chest pain or shortness of breath. Able to ambulate in the hallway. No headache or dizziness or lightheadedness. Patient has been afebrile. Current medications reviewed. Objective - Vital Signs Vital signs: Vital Signs Temp 98 F 11/13/19 11:47 Pulse 48 L 11/13/19 16:20 Resp 17 11/13/19 16:20 BP 136/79 11/13/19 11:47 Pulse Ox 99 11/13/19 11:47 Intake & Output 11/13/19 11/13/19 11/14/19 06:59 18:59 06:59 Intake Total 825 240 Balance 825 240 Weight 99.79 kg Intake: Intake, IV Titration 825 Amount Sodium Chloride 0.9% 1, 825 000 ml @ 75 mls/hr IV . [id number] Rx#:[id number] Oral 240 Other: Voiding Method Toilet Toilet # Voids 1 1 - Exam PHYSICAL EXAMINATION: Patient is lying in the bed comfortably, no acute distress, awake alert and oriented.. HEENT: Normocephalic. Neck is supple. Pupils reactive. Nostrils clear. Oral cavity is moist. Ears reveal no drainage. Neck reveals no JVD, carotid bruits, or thyromegaly. CHEST EXAMINATION: Trachea is central. Symmetrical expansion. Lung garcia clear to auscultation and percussion. CARDIAC: Normal S1, S2 with no gallops. No murmurs ABDOMEN: Soft. Bowel sounds normal. No organomegaly. No abdominal bruits. Extremities: reveal no edema. No clubbing or cyanosis Neurologically awake, alert, oriented x2-3 .Left-sided facial droop. Muscle strength 5 out of 5 on all 4 extremities. Skin: No rash or skin lesions. Psychiatric: Coperative. Nonsuicidal Musculoskeletal: No joint swelling or deformity. Normal range of motion. - Labs CBC & Chem 7: 11/13/19 06:52 11/13/19 06:52 Labs: Abnormal Lab Results - Last 24 Hours (Table) 11/13/19 11/13/19 Range/Units 06:52 06:52 WBC 11.7 H (3.8-10.6) k/uL Neutrophils # 8.8 H (1.3-7.7) k/uL BUN 21 H (9-20) mg/dL Assessment and Plan Assessment: Left-sided facial asymmetry and expressive was 2 weeks ago as per patient. Ruled out acute CVA. CT head and CTA negative. Possible acute delirium likely with recent steroid use Patient is an outpatient as per psychiatric evaluation Mild hypovolemic hyponatremia Leukocytosis. Rule out infection. Hypertension History of glioblastoma multiforme status post laser surgery at [facility] on September 25, 2019 Previous history of smoking DVT prophylaxis with heparin subcu Plan: Patient will be continued on gentle hydration and symptomatic management. CT head and CTA head and neck was done showed no significant changes. Chest x-ray is negative and UA was ordered. Monitor repeat labs tomorrow. Continue to follow closely and further recommendations based on clinical course. Time with Patient: Greater than 30
--- NOTE | 2019-11-14 23:39 | P.PN ---
Subjective Progress Note Date: 11/14/19 Principal diagnosis: Left-sided facial asymmetry Acute delirium Patient is a 64-year-old male with a known history of hypertension, history of GBM and craniotomy 2 years ago and also recent laser resection at [facility] on September 25, 2019 given. With the complaints of expressive aphasia and facial asymmetry. Patient states that he is currently at home and was discharged from [facility] 10/21/2019 patient was given dexamethasone tapering course at that time. Patient states that he has been having patient is medically and also states that his left side of the face is more flattened than after surgery recently. Patient believes that his left side of the face is more improved it was couple weeks ago. Patient is also having expiratory phase over the past 1 week and was admitted 3-week ago and was sent home. Patient is back to the hospital and he wants it to be fixed. Patient is somewhat disoriented and unable to provide reliable history at this time.Patient denied any complaints of chest pain or shortness of breath. No cough or sputum production. No fever no chills. No nausea vomiting or abdominal pain or diarrhea We have received a phone call from Adult Protective Services stating that the patient was acting altered recently and on occasionally taking more medication than prescribed. Patient had EKG in the ER showed sinus bradycardia with QTC 410. No ST-T wave changes. CT head was done showed age-related atrophic and chronic small vessel ischemic changes without acute intracranial process. CT angiography head and neck showed no significant diameter reduction to account for the patient's symptoms. No significant abnormalities. Chest x-ray showed no acute process. UA is pending. Blood pressure was 159/88 and pulse is 48 on admission saturating well on room air. Laboratory data showed WBC 16.2, hemoglobin 14.4 Sodium 136, BUN 25 and creatinine 0.95 11/13/2019 Patient wants to be discharged home and says that his left sided facial droop is able to same. Patient is fixed at his left side of the face is more drooping than immediately after surgery. Patient says that he is supposed to follow with the surgeon on . Patient otherwise being followed by adult protective services. Contacted social insurance administrator and case management. Patient does have open file with the APS. A norwood does have a guardian who is applying for POA the next week. Patient wants to be discharged home. Otherwise no complaints of weakness. No complaints of chest pain or shortness of breath. Able to ambulate in the hallway. No headache or dizziness or lightheadedness. Patient has been afebrile. 11/14/2019 Patient is currently fixated on going home. Patient wants to be discharged. Seen by psychiatry and the patient deemed not additional at this time. Patient does have power of divorce attorney and who is applying for legal guardianship early next week. Patient also has APS case pending and the status is unknown at this time. Patient was trying to leave the hospital and was counseled extensively to stay in the hospital until tomorrow to effect of the home situation as well as ap plication for guardianship. Otherwise patient denied any complaints of chest pain or shortness of breath. He still states that his left facial asymmetry is same. Patient has been afebrile. Patient does have appointment with his surgeon neuro on at [facility]. CMS and social work is following. Current medications reviewed. Objective - Vital Signs Vital signs: Vital Signs Temp 97.4 F L 11/14/19 19:25 Pulse 58 L 11/14/19 19:25 Resp 18 11/14/19 19:25 BP 156/80 11/14/19 19:25 Pulse Ox 99 11/14/19 19:25 Intake & Output 11/14/19 11/14/19 11/15/19 06:59 18:59 06:59 Intake Total 240 Balance 240 Intake: Oral 240 Other: Voiding Method Toilet Toilet Toilet # Voids 1 3 1 - Exam PHYSICAL EXAMINATION: Patient is lying in the bed comfortably, no acute distress, awake alert and oriented.. HEENT: Normocephalic. Neck is supple. Pupils reactive. Nostrils clear. Oral cavity is moist. Ears reveal no drainage. Neck reveals no JVD, carotid bruits, or thyromegaly. CHEST EXAMINATION: Trachea is central. Symmetrical expansion. Lung garcia clear to auscultation and percussion. CARDIAC: Normal S1, S2 with no gallops. No murmurs ABDOMEN: Soft. Bowel sounds normal. No organomegaly. No abdominal bruits. Extremities: reveal no edema. No clubbing or cyanosis Neurologically awake, alert, oriented x2-3 .Left-sided facial droop. Muscle strength 5 out of 5 on all 4 extremities. Skin: No rash or skin lesions. Psychiatric: Coperative. Nonsuicidal Musculoskeletal: No joint swelling or deformity. Normal range of motion. - Labs CBC & Chem 7: 11/13/19 06:52 11/13/19 06:52 Assessment and Plan Assessment: Left-sided facial asymmetry and expressive aphasia 2 weeks ago as per patient. Ruled out acute CVA. CT head and CTA negative.Patient does not have any expressive aphasia currently. Possible acute delirium likely with recent steroid use. Patient completed dexam ethasone tapering course. Patient does not have decision-making capacity as per psychiatric evaluation Mild hypovolemic hyponatremia Leukocytosis. Ruled out infection.trending down. Hypertension History of glioblastoma multiforme status post laser surgery at [facility] on September 25, 2019 Previous history of smoking DVT prophylaxis with heparin subcu Plan: Patient will be continued on gentle hydration and symptomatic management. CT head and CTA head and neck was done showed no significant changes. Chest x-ray is negative and UA was ordered. Monitor repeat labs tomorrow. Continue to follow closely and further recommendations based on clinical course. Time with Patient: Greater than 30
[2019-11-15 07:30] LABS: HCT 40.4 % (39.0-53.0); HGB 13.7 gm/dL (13.0-17.5); MCH 31.3 pg (25.0-35.0); MCHC 33.9 g/dL (31.0-37.0); MCV 92.4 fL (80.0-100.0); Mean Platelet Volume 7.7; Platelet Count 160 k/uL (150-450); RBC 4.38 m/uL (4.30-5.90)
[2019-11-15 07:38] LABS: African American GFR (CKD) >90 (>60 ml/min/1.73 sqM); Anion Gap 2 mmol/L; Blood Urea Nitrogen 18 mg/dL (9-20); Calcium 8.6 mg/dL (8.4-10.2); Carbon Dioxide 30 mmol/L (22-30); Chloride 107 mmol/L (98-107); Glucose 99 mg/dL (74-99); Non-African American GFR(CKD) 78 (>60 ml/min/1.73 sqM); Potassium 4.3 mmol/L (3.5-5.1); Sodium 139 mmol/L (137-145)
[2019-11-15] MEDS: amLODIPine 5 MG TAB PO SCH (08:55)
[2019-11-15 08:56] LABS: Band Neutrophils % 1 %; Eosinophils # (M) 0.08 k/uL (0-0.7); Lymphocytes # (M) 1.28 k/uL (1.0-4.8); Metamyelocytes # (M) 0.08 k/uL (0); Metamyelocytes % 1 %; Monocytes # (M) 0.88 k/uL (0-1.0); Myelocytes # (M) 0.16 k/uL (0); Myelocytes % 2 %; Neutrophils % (M) 69 %; Nucleated Red Blood Cells 0 /100 WBC (0-0); Total Cells Counted 200
--- NOTE | 2019-11-15 22:10 | P.PN ---
Subjective Patient is a 64-year-old male with a known history of hypertension, history of GBM and craniotomy 2 years ago and also recent laser resection at [facility] on September 25, 2019 given. With the complaints of expressive aphasia and facial asymmetry. Patient states that he is currently at home and was discharged from [facility] 10/21/2019 patient was given dexamethasone tapering course at that time. as per document he states that his left side of the face is more flattened than after surgery recently. Patient was noticed by my colleague Dr. Goins to be somewhat disoriented and unable to provide reliable history at this time, also medical team has received a phone call from Adult Protective Services stating that the patient was acting altered recently and on occasionally taking more medication than prescribed. per social wor ker/supportive employment case manager his brother and josef Fu has concerns of patient going home by himself, the pt was not taking his meds, the pt is not paying his bills. also the pt has a lot of refused visits from home care and will not allow them to come in. Psychiatric evaluated the patient, it looks like he does not have the ability to make sound decision for himself and regurgitation seems appropriate. Today patient is fully awake and oriented, it looks calm but restless eager to go home. Patient sometimes answer questions and related to the questions asked. He looks disoriented. Patient had EKG in the ER showed sinus bradycardia with QTC 410. No ST-T wave changes. CT head was done showed age-related atrophic and chronic small vessel ischemic changes without acute intracranial process. CT angiography head and neck showed no significant diameter reduction to account for the patient's symptoms. No significant abnormalities. Chest x-ray: No acute process. Urinalysis is benign. Hemodynamically stable. WBC is back to normal Patient does have power of flatwork assembler and who is applying for legal guardianship early next week. Adult protective services involved We will keep monitoring Review of systems CONSTITUTIONAL: No fever, no malaise, no fatigue. HEENT: No recent visual problems or hearing problems. Denied any sore throat. CARDIOVASCULAR: No orthopnea, PND, no palpitations, no syncope. PULMONARY: No shortness of breath, no cough, no hemoptysis. GASTROINTESTINAL: No diarrhea, no nausea, no vomiting, no abdominal pain. Normoactive bowel sounds. NEUROLOGICAL: No headaches, no weakness, no numbness. HEMATOLOGICAL: Denies any bleeding or petechiae. GENITOURINARY: Denies any burning micturition, frequency, or urgency. MUSCULOSKELETAL/RHEUMATOLOGICAL: Denies any joint pain, swelling, or any muscle pain. ENDOCRINE: Denies any polyuria or polydipsia. Active Medications Generic Name Dose Route Start Last Admin Trade Name Freq PRN Reason Stop Dose Admin Alprazolam 0.5 mg 11/15/19 07:50 Xanax PO BID PRN Anxiety Amlodipine Besylate 5 mg 11/13/19 09:00 11/15/19 08:55 Norvasc PO 5 mg DAILY JOSH Administration Ondansetron HCl 4 mg 11/12/19 23:15 Zofran IVP Q6HR PRN Nausea And Vomiting Objective - Vital Signs Vital signs: Vital Signs Temp 98.1 F 11/15/19 13:46 Pulse 99 11/15/19 13:46 Resp 16 11/15/19 13:46 BP 173/72 11/15/19 13:46 Pulse Ox 95 11/15/19 13:46 Intake & Output 11/15/19 11/15/19 11/16/19 06:59 18:59 06:59 Other: Voiding Method Toilet Toilet # Voids 2 2 - Exam GENERAL: The patient is alert and oriented x3, not in any acute distress. Well developed, well nourished. HEENT: Pupils are round and equally reacting to light. EOMI. No scleral icterus. No conjunctival pallor. Normocephalic, atraumatic. No pharyngeal erythema. No thyromegaly. CARDIOVASCULAR: S1 and S2 present. No murmurs, rubs, or gallops. PULMONARY: Chest is clear to auscultation, no wheezing or crackles. ABDOMEN: Soft, nontender, nondistended, normoactive bowel sounds. No palpable organomegaly. MUSCULOSKELETAL: No joint swelling or deformity. EXTREMITIES: No cyanosis, clubbing, or pedal edema. -NEUROLOGICAL: Gross neurological examination did not reveal any focal deficits. Right facial deviation. Strength is 5/5 in all its with you. Sensation is intact. Rest of tenderness are grossly intact. Meningeal signs are absent SKIN: No rashes. no petechiae. - Labs CBC & Chem 7: 11/15/19 07:02 11/15/19 07:02 Labs: Abnormal Lab Results - Last 24 Hours (Table) 11/15/19 Range/Units 07:02 Metamyelocytes # (Man) 0.08 H (0) k/uL Myelocytes # (Manual) 0.16 H (0) k/uL Assessment and Plan Assessment: -Left-sided facial asymmetry .CT head and CTA negative.Patient does not have any expressive aphasia currently. We'll continue to monitor -Possible acute delirium likely with recent steroid use. Patient completed dexamethasone tapering course. No more delirium was noticed -Patient does not have decision-making capacity as per psychiatric evaluation, social media intern/supportive employment case manager on the case. His brother low was power of flatwork assembler is applying for guardianship. Adult Protective Services on the case -Hypertension -History of glioblastoma multiforme status post laser surgery at [facility] on September 25, 2019 -Previous history of smoking -DVT prophylaxis with heparin subcu Prognosis is guarded
[2019-11-16] MEDS ORDERED: LORazepam 2 MG/ML INJ IV PRN (08:29)
[2019-11-16] MEDS ORDERED: LORazepam 2 MG/ML INJ ONE (08:33)
[2019-11-16] MEDS ORDERED: LORazepam 2 MG/ML INJ IM PRN (08:37)
[2019-11-16] MEDS ORDERED: LORazepam 1 MG TAB PO STA (08:53)
[2019-11-16] MEDS: amLODIPine 5 MG TAB PO SCH (08:59)
--- NOTE | 2019-11-16 20:07 | P.PN ---
Subjective Patient is a 64-year-old male with a known history of hypertension, history of GBM and craniotomy 2 years ago and also recent laser resection at [facility] on September 25, 2019 given. With the complaints of expressive aphasia and facial asymmetry. Patient states that he is currently at home and was discharged from [facility] 10/21/2019 patient was given dexamethasone tapering course at that time. as per document he states that his left side of the face is more flattened than after surgery recently. Patient was noticed by my colleague Dr. Goins to be somewhat disoriented and unable to provide reliable history at this time, also medical team has received a phone call from Adult Protective Services stating that the patient was acting altered recently and on occasionally taking more medication than prescribed. per social wor ker/case supervisor his brother and josef Fu has concerns of patient going home by himself, the pt was not taking his meds, the pt is not paying his bills. also the pt has a lot of refused visits from home care and will not allow them to come in. Psychiatric evaluated the patient, it looks like he does not have the ability to make sound decision for himself and regurgitation seems appropriate. Today patient is fully awake and oriented, it looks calm but restless eager to go home. Patient sometimes answer questions and related to the questions asked. He looks disoriented. Patient had EKG in the ER showed sinus bradycardia with QTC 410. No ST-T wave changes. CT head was done showed age-related atrophic and chronic small vessel ischemic changes without acute intracranial process. CT angiography head and neck showed no significant diameter reduction to account for the patient's symptoms. No significant abnormalities. Chest x-ray: No acute process. Urinalysis is benign. Hemodynamically stable. WBC is back to normal Patient does have power of mechanical engineering manager and who is applying for legal guardianship early next week. Adult protective services involved We will keep monitoring 11/16/2019 Patient is awake and alert, still has facial radiation on the right side, no other new complaints. Patient is trying to leave the hospital, I will try to explained for the patient is not ready for discharge, also discussed with the staff for precautions against elopement including sitter at bedside and changing the patient clothes into hospital gown (patient was running a T-shirt and a short pants). trolley worker on the case and his power of mechanical engineering manager and a PDS nerves are involved as well. Patient does not has capacity to make medical decision based psychiatric and moderate evaluation I discussed the case with social work case manager, [facility] would not accept the patient today, he has his court hearing tomorrow for guardianship, patient power of mechanical engineering manager his [id number], however patient's was probably guardian Vital signs labs are stable Objective - Vital Signs Vital signs: Vital Signs Temp 97.9 F 11/16/19 05:00 Pulse 94 11/16/19 05:00 Resp 16 11/16/19 05:00 BP 114/65 11/16/19 05:00 Pulse Ox 97 11/16/19 05:00 Intake & Output 11/15/19 11/16/19 11/16/19 18:59 06:59 18:59 Intake Total 960 Balance 960 Intake: Oral 960 Other: Voiding Method Toilet Toilet # Voids 2 1 - Exam GENERAL: The patient is alert and oriented x3, not in any acute distress. Well developed, well nourished. HEENT: Pupils are round and equally reacting to light. EOMI. No scleral icterus. No conjunctival pallor. Normocephalic, atraumatic. No pharyngeal erythema. No thyromegaly. CARDIOVASCULAR: S1 and S2 present. No murmurs, rubs, or gallops. PULMONARY: Chest is clear to auscultation, no wheezing or crackles. ABDOMEN: Soft, nontender, nondistended, normoactive bowel sounds. No palpable organomegaly. MUSCULOSKELETAL: No joint swelling or deformity. EXTREMITIES: No cyanosis, clubbing, or pedal edema. -NEUROLOGICAL: Gross neurological examination did not reveal any focal deficits. Right facial deviation. Strength is 5/5 in all its with you. Sensation is intact. Rest of tenderness are grossly intact. Meningeal signs are absent SKIN: No rashes. no petechiae. - Labs CBC & Chem 7: 11/15/19 07:02 11/15/19 07:02 Labs: Abnormal Lab Results - Last 24 Hours (Table) 11/15/19 Range/Units 07:02 Metamyelocytes # (Man) 0.08 H (0) k/uL Myelocytes # (Manual) 0.16 H (0) k/uL Assessment and Plan Assessment: -Left-sided facial asymmetry .CT head and CTA negative.Patient does not have any expressive aphasia currently. We'll continue to monitor -Possible acute delirium likely with recent steroid use. Patient completed dexamethasone tapering course. No more delirium was noticed -Patient does not have decision-making capacity as per psychiatric evaluation, social work case manager/case supervisor on the case. His brother low was power of mechanical engineering manager is applying for guardianship. Adult Protective Services on the case. Patient was safe to go home by himself -Hypertension -History of glioblastoma multiforme status post laser surgery at [facility] on September 25, 2019 -Previous history of smoking -DVT prophylaxis with heparin subcu Prognosis is guarded
[2019-11-16] MEDS: ALPRAZolam 0.5 MG TAB PO PRN (20:41)
[2019-11-17] MEDS: amLODIPine 5 MG TAB PO SCH (07:55)
[2019-11-17] MEDS: ALPRAZolam 0.5 MG TAB PO PRN (07:55)
--- NOTE | 2019-11-17 12:29 | P.DS ---
Providers Date of admission: 11/14/19 09:35 Attending physician: Praveen Goins Consults: 11/14/19 13:04 Consult Physician Stat Consulting Provider: Michael Quintero Consult Reason/Comments: compensate Do you want consulting provider notified?: Yes Primary care physician: Physician Nonstaff Hospital Course: Diagnoses: -Left-sided facial asymmetry .CT head and CTA negative.Patient does not have any expressive aphasia currently. history of GBM and craniotomy 2 years ago and also recent laser resection at [facility] on September 25, 2019 -Possible acute delirium likely with recent steroid use. Patient completed dexamethasone tapering course. No more delirium was noticed -Patient does not have decision-making capacity as per psychiatric evaluation, social studies department chair/case management manager on the case. His brother [place] was power of associate attorney is applying for guardianship. Adult Protective Services on the case. -Hypertension -History of glioblastoma multiforme status post laser surgery at [facility] on September 25, 2019 -Previous history of smoking -DVT prophylaxis with heparin subcu Hospital course: Patient is a 64-year-old male with a known history of hypertension, history of GBM and craniotomy 2 years ago and also recent laser resection at [facility] on September 25, 2019 given. Present With the complaints of expressive aphasia and facial asymmetry. Patient states that he is currently at home and was discharged from [facility] 10/21/2019 patient was given dexamethasone tapering course at that time. as per document he states that his left side of the face is more flattened than after surgery recently. Patient was noticed by my colleague Dr. Goins to be somewhat disoriented and unable to provide reliable history at this time, also medical team has received a phone call from Adult Protective Services stating that the patient was acting altered recently and on occasionally taking more medication than prescribed. per social studies department chair/case management manager his brother in[place] KRISTAN Fu has concerns of patient going home by himself, the pt was not taking his meds, the pt is not paying his bills. also the pt has a lot of refused visits from home care and will not allow them to come in. Psychiatric evaluated the patient, it looks like he does not have the ability to make sound decision for himself and guardianship seems appropriate. Today patient is fully awake and oriented, it looks calm but restless eager to go home. Patient sometimes answer questions un-related to the questions asked. CT head was done showed age-related atrophic and chronic small vessel ischemic changes without acute intracranial process. CT angiography head and neck showed no significant diameter reduction to account for the patient's symptoms. No significant abnormalities. Chest x-ray: No acute process. Urinalysis is benign. Hemodynamically stable. WBC is back to normal Patient does have power of associate attorney and who became his legal guardianship. Adult protective services involved Patient was found stable and can be discharged to [facility] in guarded prognosis however he needs follow-up as an outpatient. instructed to follow up with PCP within one week and patient agrees, and his neurologist in 1-2 weeks Gen: patient is a AAOx3, no distress CVS: S1-S2, RRR, no murmur Lungs: B/L CTA, no wheezing Abdomen: soft, no distention, no tenderness, positive bowel sounds Extremity: no leg edema or induration neuro: flat left side of the face since admission ,all other cranial nerves are grossly intact. Strength is 5/5 in all extremities. Sensation intact. Meningeal signs are absent. Gait is normal Time spent more than 35 minutes Patient Condition at Discharge: Fair Plan - Discharge Summary Discharge Rx Participant: No New Discharge Prescriptions: Continue Dexamethasone See Taper PO DIRECTED Ondansetron HCl [Zofran] 8 mg PO Q8H PRN PRN Reason: Nausea And Vomiting amLODIPine [Norvasc] 5 mg PO DAILY #30 tab Discharge Medication List Dexamethasone See Taper PO DIRECTED 11/12/19 [History] Ondansetron HCl [Zofran] 8 mg PO Q8H PRN 11/12/19 [History] amLODIPine [Norvasc] 5 mg PO DAILY #30 tab 11/17/19 [Rx] Follow up Appointment(s)/Referral(s): Bg Torres DO [STAFF PHYSICIAN] - 1 Week [facility], [NON-STAFF] - 1 Week
[2019-11-18] MEDS: amLODIPine 5 MG TAB PO SCH (08:42)
--- NOTE | 2019-11-18 14:58 | CDI ---
Documentation Clarification Form Date: 11/18/2019 02:49:59 PM From: Moriah Cid RN, CCDS Phone: [phone] Admit Date: 11/14/2019 09:35:00 AM Patient Name: Jluis Keen Visit Number: [id number] ATTENTION: The Clinical Documentation Specialists (CDI) and [facility] Coding Staff appreciate your assistance in clarifying documentation. Please respond to the clarification below the line at the bottom and electronically sign. The CDI & [facility] Coding staff will review the response and follow-up if needed. Please note: Queries are made part of the Legal Health Record. If you have any questions, please contact the author of this message via ITS. Dr. Vasques E Ronna Delirium related to recent steroid use has been documented and requires further specificity. History/Risk Factors: Expressive aphasia, glioblastoma multiforme, smoker, htn, craniotomy Clinical Indicators: 11/15 Attending progress Note: "Possible acute delirium likely with recent steroid use. Patient completed Dexamethasone tapering course. No more delirium was noticed." Labs: WBC 16.2/11.7/8 MRI Brain:"Age related atrophic and chronic small vessel ischemic change without acute intracranial process seen at this time." Treatment: 500 cc 0.9%NS IVF Bolus followed by 75 cc/hr Ativan 1 mg PO x 1 dose Xanax 0.5 mg PO BID In your professional opinion, please clarify the etiology of the Altered Mental Status, if known. Toxic Encephalopathy (specify Underlying Medical Illness) Other condition (please specify) Unable to determine (Last Revision: August 2017) toxic encephalopathy , resolved MTDD
[2019-11-18 21:28] VITALS: BP 153/76; PULSE 62; RESP 16; TEMP 97.7
--- NOTE | 2019-11-18 23:14 | P.PN ---
Subjective Patient is a 64-year-old male with a known history of hypertension, history of GBM and craniotomy 2 years ago and also recent laser resection at [facility] on September 25, 2019 given. With the complaints of expressive aphasia and facial asymmetry. Patient states that he is currently at home and was discharged from [facility] 10/21/2019 patient was given dexamethasone tapering course at that time. as per document he states that his left side of the face is more flattened than after surgery recently. Patient was noticed by my colleague Dr. Goins to be somewhat disoriented and unable to provide reliable history at this time, also medical team has received a phone call from Adult Protective Services stating that the patient was acting altered recently and on occasionally taking more medication than prescribed. per social wor ker/correctional case manager his brother and josef Fu has concerns of patient going home by himself, the pt was not taking his meds, the pt is not paying his bills. also the pt has a lot of refused visits from home care and will not allow them to come in. Psychiatric evaluated the patient, it looks like he does not have the ability to make sound decision for himself and regurgitation seems appropriate. Today patient is fully awake and oriented, it looks calm but restless eager to go home. Patient sometimes answer questions and related to the questions asked. He looks disoriented. Patient had EKG in the ER showed sinus bradycardia with QTC 410. No ST-T wave changes. CT head was done showed age-related atrophic and chronic small vessel ischemic changes without acute intracranial process. CT angiography head and neck showed no significant diameter reduction to account for the patient's symptoms. No significant abnormalities. Chest x-ray: No acute process. Urinalysis is benign. Hemodynamically stable. WBC is back to normal Patient does have power of criminal defense attorney and who is applying for legal guardianship early next week. Adult protective services involved We will keep monitoring 11/16/2019 Patient is awake and alert, still has facial radiation on the right side, no other new complaints. Patient is trying to leave the hospital, I will try to explained for the patient is not ready for discharge, also discussed with the staff for precautions against elopement including sitter at bedside and changing the patient clothes into hospital gown (patient was running a T-shirt and a short pants). poultry husbandry worker on the case and his power of criminal defense attorney and a PDS nerves are involved as well. Patient does not has capacity to make medical decision based psychiatric and moderate evaluation I discussed the case with licensed master social worker, [facility] would not accept the patient today, he has his court hearing tomorrow for guardianship, patient power of criminal defense attorney his [id number] [employer], however patient's was probably guardian Vital signs labs are stable 11/18/2019 Patient is clinically stable. Pending placement for discharge per the decision of the guardian. As per staff patient supposed to be going to adult foster home today however patient called him about 2-4 times and they rejected the admission poultry husbandry worker on the case Possible discharge tomorrow once a Place found for the patient to go to, as per guardian. poultry husbandry worker to help in management Objective - Vital Signs Vital signs: Vital Signs Temp 98.0 F 11/18/19 13:00 Pulse 49 L 11/18/19 13:00 Resp 14 11/18/19 13:00 BP 171/91 11/18/19 13:00 Pulse Ox 99 11/18/19 13:00 Intake & Output 11/18/19 11/18/19 11/19/19 06:59 18:59 06:59 Other: Voiding Method Toilet # Voids 1 - Exam GENERAL: The patient is alert and oriented x3, not in any acute distress. Well developed, well nourished. HEENT: Pupils are round and equally reacting to light. EOMI. No scleral icterus. No conjunctival pallor. Normocephalic, atraumatic. No pharyngeal erythema. No thyromegaly. CARDIOVASCULAR: S1 and S2 present. No murmurs, rubs, or gallops. PULMONARY: Chest is clear to auscultation, no wheezing or crackles. ABDOMEN: Soft, nontender, nondistended, normoactive bowel sounds. No palpable organomegaly. MUSCULOSKELETAL: No joint swelling or deformity. EXTREMITIES: No cyanosis, clubbing, or pedal edema. -NEUROLOGICAL: Gross neurological examination did not reveal any focal deficits. Right facial deviation. Strength is 5/5 in all its with you. Sensation is intact. Rest of tenderness are grossly intact. Meningeal signs are absent SKIN: No rashes. no petechiae. - Labs CBC & Chem 7: 11/15/19 07:02 11/15/19 07:02 Assessment and Plan Assessment: -Left-sided facial asymmetry .CT head and CTA negative.Patient does not have any expressive aphasia currently. We'll continue to monitor -Possible acute delirium likely with recent steroid use. Patient completed dexamethasone tapering course. No more delirium was noticed -Patient does not have decision-making capacity as per psychiatric evaluation, licensed master social worker/correctional case manager on the case. His brother low was power of criminal defense attorney is applying for guardianship. Adult Protective Services on the case. Patient was safe to go home by himself -Hypertension -History of glioblastoma multiforme status post laser surgery at [facility] on September 25, 2019 -Previous history of smoking -DVT prophylaxis with heparin subcu Prognosis is guarded
[2019-11-19] MEDS: amLODIPine 5 MG TAB PO SCH (08:51)
--- NOTE | 2019-11-19 12:55 | P.PN ---
Progress Note - Text Progress Note Date: 11/18/19 Patient was having a conversation with his family member and getting agitated and made a comment that if he was not able to go home then he would kill himself. Nursing staff and commercial underwriter went and approached patient to discuss the situation and patient stated that he would never hurt himself and that he was upset at the situation and that he would just like to go home and be with his cat. Patient is denying any suicidal ideation and has been calm with staff and is agreeable to go to the [facility] as planned.
--- NOTE | 2019-11-20 00:21 | P.DS ---
Providers Date of admission: 11/14/19 09:35 Attending physician: Praveen Goins Consults: 11/14/19 13:04 Consult Physician Stat Consulting Provider: Michael Quintero Consult Reason/Comments: compensate Do you want consulting provider notified?: Yes Primary care physician: Physician Nonstaff Hospital Course: Diagnoses: -Left-sided facial asymmetry .CT head and CTA negative.Patient does not have any expressive aphasia currently. history of GBM and craniotomy 2 years ago and also recent laser resection at [facility] on September 25, 2019 -Possible acute delirium likely with recent steroid use. Patient completed dexamethasone tapering course. No more delirium was noticed -Patient does not have decision-making capacity as per psychiatric evaluation, he has a guardian now -Hypertension -History of glioblastoma multiforme status post laser surgery at [facility] on September 25, 2019 -Previous history of smoking -DVT prophylaxis with heparin subcu Hospital course: Patient is a 64-year-old male with a known history of hypertension, history of GBM and craniotomy 2 years ago and also recent laser resection at [facility] on September 25, 2019 given. Present With the complaints of expressive aphasia and facial asymmetry. Patient states that he is currently at home and was discharged from [facility] 10/21/2019 patient was given dexamethasone tapering course at that time. as per document he states that his left side of the face is more flattened than after surgery recently. Patient was noticed by my colleague Dr. Goins to be somewhat disoriented and unable to provide reliable history at this time, also medical team has received a phone call from Adult Protective Services stating that the patient was acting altered recently and on occasionally taking more medication than prescribed. per licensed master social worker/medical case worker his brother in[place] has concerns of patient going home by himself, the pt was not taking his meds, the pt is not paying his bills. also the pt has a lot of refused visits from home care and will not allow them to come in. Psychiatric evaluated the patient, it looks like he does not have the ability to make sound decision for himself and guardianship seems appropriate. Today patient is fully awake and oriented, it looks calm but restless eager to go home. Patient sometimes answer questions un-related to the questions asked. CT head was done showed age-related atrophic and chronic small vessel ischemic changes without acute intracranial process. CT angiography head and neck showed no significant diameter reduction to account for the patient's symptoms. No significant abnormalities. Chest x-ray: No acute process. Urinalysis is benign. Hemodynamically stable. WBC is back to normal Patient monitored in the [facility] for several days with no worsening of his neuro symptoms, no new neurological symptoms. Also patient denies to me any suicidal or homicidal ideation or plans, he denies hallucinations as well. Also he has b een evaluated by psychiatrist earlier and found to him no need for psychiatric units admission Patient does have power of corporate associate attorney and who became his legal guardianship his [id number] Tank. Adult protective services involved Patient was found stable and can be discharged to a [facility] in guarded prognosis however he needs follow-up as an outpatient. instructed to follow up with PCP within one week and patient agrees, and his neurologist in 1-2 weeks Gen: patient is a AAOx3, no distress, However patient answers questions erratically and sometimes unrelated to the question CVS: S1-S2, RRR, no murmur Lungs: B/L CTA, no wheezing Abdomen: soft, no distention, no tenderness, positive bowel sounds Extremity: no leg edema or induration neuro: flat left side of the face since admission ,all other cranial nerves are grossly intact. Strength is 5/5 in all extremities. Sensation intact. Meningeal signs are absent. Gait is normal Time spent more than 35 minutes Patient Condition at Discharge: Fair Plan - Discharge Summary Discharge Rx Participant: No New Discharge Prescriptions: Continue RX: Dexamethasone See Taper PO DIRECTED RX: Ondansetron HCl [Zofran] 8 mg PO Q8H PRN PRN Reason: Nausea And Vomiting RX: amLODIPine [Norvasc] 5 mg PO DAILY #30 tab Discharge Medication List RX: Dexamethasone See Taper PO DIRECTED 11/12/19 [History] RX: Ondansetron HCl [Zofran] 8 mg PO Q8H PRN 11/12/19 [History] RX: amLODIPine [Norvasc] 5 mg PO DAILY #30 tab 11/17/19 [Rx] Follow up Appointment(s)/Referral(s): Sandip Lobato MD [REFERRING] - 1 Week (neurologist office to call with appt. time and date.) Bg Torres DO [STAFF PHYSICIAN] - 1 Week (office to call with appt, time and date) [facility], [NON-STAFF] - 1 Week Blanka Lobato MD [REFERRING] - 1 Week (neurologist ) Activity/Diet/Wound Care/Special Instructions: regular diet activity is limited till you see your doctor Discharge Disposition: HOME SELF-CARE
== END 2019-11-19 10:50 | disposition home or self-care (01) | DRG 92 ==
LOC: EC 13:48 → 5NMEDONC 17:11 → OBSVTOIN 11-14 09:35 → EEVIPCON 11-14 09:35
PROVIDERS: ADMIT Internal Medicine; ATTEND Internal Medicine
DX: G92 Toxic encephalopathy (principal); R47.01 Aphasia; F05 Delirium due to known physiological condition; E87.1 Hypo-osmolality and hyponatremia; I10 Essential (primary) hypertension; R00.1 Bradycardia, unspecified; E86.1 Hypovolemia; R29.810 Facial weakness; Z11.59 Encounter for screening for other viral diseases; Z88.0 Allergy status to penicillin; Z98.890 Other specified postprocedural states; Z80.8 Family history of malignant neoplasm of other organs or systems; Z87.891 Personal history of nicotine dependence; Z85.841 Personal history of malignant neoplasm of brain; Z82.49 Family history of ischemic heart disease and other diseases of the circulatory system; Z79.899 Other long term (current) drug therapy
CPT/HCPCS: 36415; 70450; 70496; 70498; 71046; 80048; 80053; 81003; 84484; 85025; 85610; 85730; 93005; 96361; 96374; 99285